=== PATIENT | male | born 1945 | race African-American/Black ===

== ENCOUNTER 2017-04-10 02:32 | Emergency (ER) | payer BC ==
[~2017-04-10] VITALS: Ht 178 cm; Wt 97.2 kg
[~2017-04-10 02:32] MED LIST: AMB10 PO; APRES50 PO; ASAB PO; ASMANEX INH; CAT2 PO; DULERA 200 MCG/13 GM INH; EXFORGE1 TA1 PO; FISH-EPA1000 MG PO; FORADIL INH; HYZAAR1 TAB PO; IMDUR30 PO; KLONIPIN; L40 PO; LIPITOR40 PO; LIPITOR80 MG; NITROQUICK0.4 MG SL; NORV10 PO; PROAIR HFA INH; SEPTRA DS1 TAB PO; SINGULAIR1 PO; SODBICAR10 PO; SPIRIVA RESPIMAT INH; TENORETIC1 TAB PO; VICODINTAB PO; VITAMIN D31000 UNIT PO; VITC500 PO; XANAX1 MG PO; Z300 PO; ZEGERID1 CA1 PO; ZESTRIL20 MG PO
[2017-04-10 04:15] LABS: BASOPHILS 0.1 %; BASOPHILS ABSOLUTE 0.01 10/3/uL (0.0-0.16); EOSINOPHILS 2.4 %; EOSINOPHILS ABSOLUTE 0.16 10/3/uL (0.0-0.53); HEMATOCRIT 33.3 % (40.0-51.0); IMMATURE GRANULOCYTES 1.8 %; IMMATURE GRANULOCYTES ABSOLUTE 0.12 10/3/uL (0.0-0.11); LYMPHOCYTES 17.7 %; LYMPHOCYTES ABSOLUTE 1.19 10/3/uL (0.67-4.30); MEAN CORPUSCULAR HEMOGLOB 31.3 pg (26.0-34.0); MEAN PLATELET VOLUME 9.1 fL (9.2-13.0); MONOCYTES 6.4 %; MONOCYTES ABSOLUTE 0.43 10/3/uL (0.21-1.20); NEUTROPHILS 71.6 %; NEUTROPHILS ABSOLUTE 4.83 10/3/uL (2.02-8.40); PLATELET COUNT 155 10/3/uL (150-400); RBC DISTRIBUTION WIDTH 16.6 % (12.0-16.0); RED CELL COUNT 3.52 10/6/uL (4.7-6.1); WHITE BLOOD CELLS 6.7 10/3/uL (4.5-10.5)
[2017-04-10 04:16] LABS: ER CBC TAT 0 Hrs 04 MinsNP; MANUAL DIFF NO %; MEAN CORPUSCULAR VOLUME 94.6 fL (80-100)
[2017-04-10 04:22] LABS: INTERNATIONAL NORMAL RATI 0.9 UNITS (-); PARTIAL THROMBO TIME 29.5 SEC (22.5-37.2); PROTIME (NOT ORD) 12.3 SEC (12.0-14.5)
[2017-04-10 04:32] LABS: CALCIUM, SERUM 8.2 MG/DL (8.5-10.4); CHEST PAIN PROFILE TAT 0 Hrs 21 Mins; CHLORIDE, SERUM 112 MMOL/L (96-112); CO2 (CARBON DIOXIDE) 22 MMOL/L (24-34); CREATININE 2.26 MG/DL (0.70-1.30); GFR AFRICAN AMERICAN 33 ML/MIN (>=60); GFR NON AFRICAN AMERICAN 29 ML/MIN (>=60); GLUCOSE, SERUM 105 MG/DL (60-99); POTASSIUM, SERUM 4.1 MMOL/L (3.5-5.3); SODIUM, SERUM 144 MMOL/L (135-148); TROPONIN I 0.03 NG/ML (<0.05)
[2017-04-10 04:33] LABS: BUN (BLOOD UREA NITROGEN) 50 MG/DL (6-23)
== END 2017-04-10 05:00 | disposition home or self-care (01) ==
LOC: ER 02:32
PROVIDERS: Student in an Organized Health Care Education/Training Program
DX: M25.512 Pain in left shoulder (principal); I12.9 Hypertensive chronic kidney disease with stage 1 through stage 4 chronic kidney disease, or unspecified chronic kidney disease; N18.9 Chronic kidney disease, unspecified; I25.2 Old myocardial infarction; E78.5 Hyperlipidemia, unspecified; J44.9 Chronic obstructive pulmonary disease, unspecified; Z88.0 Allergy status to penicillin; Z88.6 Allergy status to analgesic agent; Z79.899 Other long term (current) drug therapy; Z79.82 Long term (current) use of aspirin
CPT/HCPCS: 71010; 80048; 83735; 84484; 85025; 85610; 85730; 93005; 96372; 99284; J2360